=== PATIENT | female | born 1995 | race Caucasian/White ===

== ENCOUNTER 2019-06-19 18:59 | Emergency (ER) | payer MEDICAID ==
[2019-06-19] MEDS ORDERED: DIAZEPAM 2 MG TABLET PO ONE (20:48)
--- NOTE | 2019-06-19 21:00 | ER Document Report ---
ED Medical Screen (RME) - General Chief Complaint: Anxiety Stated Complaint: ANXIETY Time Seen by Provider: 06/19/19 20:42 Notes: Patient is a 23-year-old female who presents to the emergency department with a chief complaint of anxiety. She states that her symptoms started around 1730 right after work. Patient states that she has been under a great deal of stress due to her mother having stage IV lymphoma and the patient also being in a custody wisdom with her baby's father. Patient states that she has some tingling in her hands and feet. She currently takes Adderall. She does not take any medications for anxiety. Exam: Patient hyperventilating. Lung sounds clear to auscultation. Tachycardic. I have greeted and performed a rapid initial assessment of this patient. A comprehensive ED assessment and evaluation of the patient, analysis of test results and completion of medical decision making process will be conducted by an additional ED providers. TRAVEL OUTSIDE OF THE [place] IN LAST 30 DAYS: No - Related Data Allergies/Adverse Reactions: Penicillins Allergy (Verified 06/19/19 20:43) Past Medical History - Social History Chew tobacco use (# tins/day): No Renal/ Medical History: Denies: Hx Peritoneal Dialysis Past Surgical History: Reports: Hx Oral Surgery Physical Exam - Vital signs Vitals: Temp Pulse Resp BP Pulse Ox 98 F 109 H 18 134/91 H 100 06/19/19 19:10 06/19/19 19:10 06/19/19 19:10 06/19/19 19:10 06/19/19 19:10 Course - Vital Signs Vital signs: Temp Pulse Resp BP Pulse Ox 98 F 144 H 18 188/112 H 100 06/19/19 19:10 06/19/19 20:07 06/19/19 19:10 06/19/19 20:07 06/19/19 19:10
[2019-06-19 21:28] LABS: APPEARANCE,URINE CLEAR; BILIRUBIN,URINE NEGATIVE (NEGATIVE); COLOR,URINE STRAW; GLUCOSE, URINE NEGATIVE (NEGATIVE); KETONES,URINE TRACE mg/dL (NEGATIVE); LEUKOCYTE ESTERASE,URINE MODERATE (NEGATIVE); NITRITE,URINE NEGATIVE (NEGATIVE); PROTEIN,URINE NEGATIVE (NEGATIVE); URINE SPECIFIC GRAVITY 1.003; UROBILINOGEN,URINE NEGATIVE mg/dL (<2.0)
[2019-06-19 21:34] LABS: ABSOLUTE EOSINOPHILS # (AUTO) 0.1 10^3/uL (0.0-0.6); ABSOLUTE LYMPHOCYTES (AUTO) 2.1 10^3/uL (0.5-4.7); ABSOLUTE MONOCYTES (AUTO) 0.7 10^3/uL (0.1-1.4); ABSOLUTE NEUT (AUTO) 4.9 10^3/uL (1.7-8.2); BASOPHILS % (AUTO) 0.4 % (0-2); EOSINOPHILS % (AUTO) 1.5 % (0-6); HEMATOCRIT 40.9 % (36.0-47.0); HEMOGLOBIN 14.2 g/dL (12.0-15.5); LYMPHOCYTES % (AUTO) 26.8 % (13-45); MEAN CORPUSCULAR HEMOGLOBIN 33.2 pg (27.0-33.4); MEAN CORPUSCULAR HGB CONC 34.8 g/dL (32.0-36.0); MEAN CORPUSCULAR VOLUME 96 fl (80-97); MONOCYTES % (AUTO) 8.7 % (3-13); PLATELET COUNT 316 10^3/uL (150-450); RED BLOOD COUNT 4.28 10^6/uL (3.72-5.28); RED CELL DISTRIBUTION WIDTH 12.8 % (11.5-14.0); SEGMENTED NEUTROPHILS % (AUTO) 62.6 % (42-78); TOTAL CELLS COUNTED % (AUTO) 100 %; WHITE BLOOD COUNT 7.8 10^3/uL (4.0-10.5)
[2019-06-19 21:38] LABS: ALKALINE PHOSPHATASE 86 U/L (38-126); ANION GAP 14 (5-19); ASPARTATE AMINO TRANSFERASE 27 U/L (14-36); BILIRUBIN,DIRECT 0.2 mg/dL (0.0-0.4); BILIRUBIN,TOTAL 0.6 mg/dL (0.2-1.3); BLOOD UREA NITROGEN 14 mg/dL (7-20); CALCIUM 10.3 mg/dL (8.4-10.2); CARBON DIOXIDE 22 mmol/L (22-30); CHLORIDE 103 mmol/L (98-107); GLUCOSE 109 mg/dL (75-110); POTASSIUM 3.9 mmol/L (3.6-5.0)
--- NOTE | 2019-06-19 22:00 | EKG REPORT ---
SEVERITY:- OTHERWISE NORMAL ECG - SINUS TACHYCARDIA : Confirmed by: Panfilo Hilario MD 19-Jun-2019 21:59:35
--- NOTE | 2019-06-19 22:16 | ER Document Report ---
ED General - General Chief Complaint: Anxiety Stated Complaint: ANXIETY Time Seen by Provider: 06/19/19 20:42 Notes: 23-year-old female patient emergency department chief complaint of panic attack. Patient states that she is under a lot of stress. Mother is diagnosed with lymphoma. In a custody wisdom for her son. Feels extremely stressed out. Begin noticing that she was taking a large amount of deep breaths and then began to have some numbness tingling loss of sensation of her fingers and on her face. [place] really short of breath. [place] like she is going to pass out. Feels much better at this time. Was seen at triage and given a Valium and states that she feels much better. TRAVEL OUTSIDE OF THE [place] IN LAST 30 DAYS: No - HPI Onset: Just prior to arrival Onset/Duration: Gradual, Better Quality of pain: No pain Severity: Moderate Pain Level: Denies Associated symptoms: Shortness of breath, Weakness, Other - This and tingling on face and fingers - Related Data Allergies/Adverse Reactions: Penicillins Allergy (Verified 06/19/19 20:43) Past Medical History - General Information source: Patient - Social History Smoking Status: Current Every Day Smoker Chew tobacco use (# tins/day): No Frequency of alcohol use: None Drug Abuse: None Lives with: Family Family History: Reviewed & Not Pertinent Patient has suicidal ideation: No Patient has homicidal ideation: No - Past Medical History Cardiac Medical History: Reports: Hx Atrial Fibrillation Renal/ Medical History: Denies: Hx Peritoneal Dialysis Past Surgical History: Reports: Hx Oral Surgery Review of Systems - Review of Systems Notes: Constitutional: denies: Chills, Diaphoresis, Fever, Malaise, Weakness EENT: denies: Eye discharge, Blurred vision, Tearing, Double vision, Nose congestion, Nose discharge, Throat swelling, Mouth pain Cardiovascular: denies: Palpitations, Heart racing, Orthopnea, Dyspnea, Chest pain Respiratory: denies: Cough, Hurts to breathe, Wheezing, +Shortness of breath Gastrointestinal: denies: Abdominal pain, Diarrhea, Nausea, Vomiting, Black stools, bright red blood in stool Genitourinary: denies: Burning, Dysuria, Discharge, Frequency, Flank pain, Hematuria Musculoskeletal: denies: Joint pain, Joint swelling, Muscle pain, Muscle stiffness, back pain Hematologic/Lymphatic: denies: Anemia, Easy bleeding, Easy bruising, Blood clots Neurological/Psychological: denies: Confusion, Dementia, Depression, Loss of consciousness, + anxiety Skin: No lesions, no masses, no skin breakdown, no abscesses Physical Exam - Vital signs Vitals: Temp Pulse Resp BP Pulse Ox 98 F 109 H 18 134/91 H 100 06/19/19 19:10 06/19/19 19:10 06/19/19 19:10 06/19/19 19:10 06/19/19 19:10 Interpretation: Tachycardic - General General appearance: Appears well, Alert - HEENT Head: Normocephalic, Atraumatic Eyes: Normal Pupils: PERRL - Respiratory Respiratory status: No respiratory distress Chest status: Nontender Breath sounds: Normal Chest palpation: Normal - Cardiovascular Rhythm: Regular Heart sounds: Normal auscultation Murmur: No - Abdominal Inspection: Normal Distension: No distension Bowel sounds: Normal Tenderness: Nontender Organomegaly: No organomegaly - Back Back: Normal, Nontender - Extremities General upper extremity: Normal inspection, Nontender, Normal color, Normal ROM, Normal temperature General lower extremity: Normal inspection, Nontender, Normal color, Normal ROM, Normal temperature, Normal weight bearing. No: Orestes's sign - Neurological Neuro grossly intact: Yes Cognition: Normal Orientation: AAOx4 Harsh Coma Scale Eye Opening: Spontaneous Harsh Coma Scale Verbal: Oriented Harsh Coma Scale Motor: Obeys Commands [place] Coma Scale Total: 15 Speech: Normal Motor strength normal: LUE, RUE, LLE, RLE Sensory: Normal - Psychological Associated symptoms: Normal affect, Anxious - Skin Skin Temperature: Warm Skin Moisture: Dry Skin Color: Normal Course - Re-evaluation Re-evalutation: 06/19/19 22:37 Laboratory 06/19/19 06/19/19 06/19/19 21:07 21:07 21:07 WBC 7.8 RBC 4.28 Hgb 14.2 Hct 40.9 MCV 96 MCH 33.2 MCHC 34.8 RDW 12.8 Plt Count 316 Seg Neutrophils % 62.6 Lymphocytes % 26.8 Monocytes % 8.7 Eosinophils % 1.5 Basophils % 0.4 Absolute Neutrophils 4.9 Absolute Lymphocytes 2.1 Absolute Monocytes 0.7 Absolute Eosinophils 0.1 Absolute Basophils 0.0 Sodium 139.2 Potassium 3.9 Chloride 103 Carbon Dioxide 22 Anion Gap 14 BUN 14 Creatinine 0.99 Est GFR ( Amer) > 60 Est GFR (Non-Af Amer) > 60 Glucose 109 Calcium 10.3 H Total Bilirubin 0.6 Direct Bilirubin 0.2 Neonat Total Bilirubin Not Reportable Neonat Direct Bilirubin Not Reportable Neonat Indirect Bili Not Reportable AST 27 ALT 22 Alkaline Phosphatase 86 Total Protein 8.0 Albumin 5.0 Serum HCG, Qual NEGATIVE Urine Color Urine Appearance Urine pH Ur Specific [place] Urine Protein Urine Glucose (UA) Urine Ketones Urine Blood Urine Nitrite Urine Bilirubin Urine Urobilinogen Ur Leukocyte Esterase Urine WBC (Auto) Urine RBC (Auto) Squamous Epi Cells Auto Urine Mucus (Auto) Urine Ascorbic Acid 06/19/19 21:07 WBC RBC Hgb Hct MCV MCH MCHC RDW Plt Count Seg Neutrophils % Lymphocytes % Monocytes % Eosinophils % Basophils % Absolute Neutrophils Absolute Lymphocytes Absolute Monocytes Absolute Eosinophils Absolute Basophils Sodium Potassium Chloride Carbon Dioxide Anion Gap BUN Creatinine Est GFR ( Amer) Est GFR (Non-Af Amer) Glucose Calcium Total Bilirubin Direct Bilirubin Neonat Total Bilirubin Neonat Direct Bilirubin Neonat Indirect Bili AST ALT Alkaline Phosphatase Total Protein Albumin Serum HCG, Qual Urine Color STRAW Urine Appearance CLEAR Urine pH 8.0 Ur Specific [place] 1.003 Urine Protein NEGATIVE Urine Glucose (UA) NEGATIVE Urine Ketones TRACE H Urine Blood SMALL H Urine Nitrite NEGATIVE Urine Bilirubin NEGATIVE Urine Urobilinogen NEGATIVE Ur Leukocyte Esterase MODERATE H Urine WBC (Auto) 6 Urine RBC (Auto) 0 Squamous Epi Cells Auto 1 Urine Mucus (Auto) RARE Urine Ascorbic Acid NEGATIVE 06/19/19 22:38 Is a well-appearing 23-year-old female patient who describes a panic attack with hyperventilation. Patient is under a lot of stress. At this time she states that the Valium that she was given at triage makes her symptoms better. I do not think that this represents a PE. She has no asymmetrical leg edema. No prior history of blood clot. No family history of blood clots. Her heart rate is currently under 100. Her oxygen saturations are 100%. She has no chest pain or hemoptysis. - Vital Signs Vital signs: Temp Pulse Resp BP Pulse Ox 98.6 F 100 20 126/83 H 99 06/19/19 21:55 06/19/19 21:55 06/19/19 21:55 06/19/19 21:55 06/19/19 21:55 - Laboratory Result Diagrams: 06/19/19 21:07 06/19/19 21:07 Laboratory results interpreted by me: 06/19/19 06/19/19 21:07 21:07 Calcium 10.3 H Urine Ketones TRACE H Urine Blood SMALL H Ur Leukocyte Esterase MODERATE H - EKG Interpretation by Me EKG shows normal: [place], Intervals, QRS Complexes, ST-T Waves Rate: Tachycardia Discharge - Discharge Clinical Impression: Sinus tachycardia, Panic attack, Hyperventilation syndrome Condition: Good Disposition: HOME, SELF-CARE Instructions: Anxiety ([facility]), Sinus Tachycardia ([facility]) Additional Instructions: Please follow-up with your primary care doctor. You may benefit from seeing a counselor or even a psychiatrist. I have prescribed a small course of some anxiety medications. Please note, as mentioned some these medications can be highly addictive and can lead to dependence. Use them sparingly. Do not mix with alcohol. Do not drive while taking these medications. Prescriptions: Clonazepam 0.5 mg PO QHS PRN 20 Days #20 tablet PRN Reason: Anxiety/Agitation Referrals: [facility] [Provider Group] - Follow up in 1 week
[2019-06-19 22:59] VITALS: BP 125/75
== END 2019-06-19 22:56 | disposition home or self-care (01) ==
LOC: ER 18:59
DX: F41.0 Panic disorder [episodic paroxysmal anxiety] (principal); F45.8 Other somatoform disorders; R00.0 Tachycardia, unspecified; R53.1 Weakness; F17.200 Nicotine dependence, unspecified, uncomplicated; Z63.79 Other stressful life events affecting family and household; Z79.899 Other long term (current) drug therapy; Z88.0 Allergy status to penicillin
CPT/HCPCS: 93005; 36415; 84703; 85025; 80053; 81001; 93010; J3490; 99283

== ENCOUNTER 2019-07-27 20:57 | Emergency (ER) | payer OTHER ==
[2019-07-27 21:07] VITALS: BP 175/99
== END 2019-07-27 23:00 | disposition left against medical advice (07) ==
LOC: ER 20:57
DX: Z53.21 Procedure and treatment not carried out due to patient leaving prior to being seen by health care provider (principal); E16.2 Hypoglycemia, unspecified

== ENCOUNTER 2019-08-16 02:54 | Emergency (ER) | payer MEDICAID ==
[2019-08-16 02:59] VITALS: BP 138/96
--- NOTE | 2019-08-16 06:39 | RADIOLOGY REPORT (SQ) ---
Chest 2 view on 08/16/2019 at 5:19 AM CLINICAL INDICATION: Shortness of breath COMPARISON: 07/19/2019 FINDINGS: The lungs are clear. Cardiac, hilar and mediastinal contours are within normal limits. Pulmonary vascularity is within normal limits. No bony abnormality is noted. IMPRESSION: No active disease.
--- NOTE | 2019-08-16 07:45 | EKG REPORT ---
SEVERITY:- OTHERWISE NORMAL ECG - SINUS TACHYCARDIA : Confirmed by: Panfilo Hilario MD 16-Aug-2019 07:45:12
== END 2019-08-16 08:02 | disposition left against medical advice (07) ==
LOC: ER 02:54
DX: Z53.21 Procedure and treatment not carried out due to patient leaving prior to being seen by health care provider (principal)
CPT/HCPCS: 71046; 93005; 93010

== ENCOUNTER 2020-11-07 19:19 | Emergency (ER) | payer MEDICAID ==
[2020-11-07 19:28] VITALS: BP 147/107
[2020-11-07] MEDS ORDERED: LORAZEPAM 1 MG TABLET PO ONE (20:18)
--- NOTE | 2020-11-07 20:26 | ER Document Report ---
ED Psych Disorder / Suicide - General Chief Complaint: Anxiety Stated Complaint: PANIC ATTACK,SHAKING Time Seen by Provider: 11/07/20 20:04 Primary Care Provider: FORTINO RUIZ FNP-C [COMMUNITY BASED STAFF] - Follow up as needed Mode of Arrival: Ambulatory Information source: Patient Notes: Patient is a 25-year-old female comes emergency room complaining of an anxiety attack. Patient states she had no specific trigger that she knows of except that her mother approximately a year ago and she still dealing with that. Patient was prescribed by the same provider for a number of years Ativan 0.5 mg twice a day and she stopped getting them filled in February 222019 was her last day to fill them. She still is getting her Adderall for ADHD states that she really does not want to take that anymore because it does not do anything for her. Patient is very teary and emotional at this point however she denies suicidal ideation or homicidal ideation. Her father brought her here. She will be going back with him. Patient denies any other medical problems and only has a history of smoking cigarettes. TRAVEL OUTSIDE OF THE [place] IN LAST 30 DAYS: No - HPI Patient complains to provider of: Agitated. No: Homicidal plan, Homicidal attempt, Suicidal ideation, Suicidal plan Onset: Yesterday Onset was: Sudden Suicide Risk Factors: Depressed, Panic disorder Normal mood: Yes Associated symptoms: Other - Anxious panicky tearful - Related Data Allergies/Adverse Reactions: Penicillins Allergy (Verified 11/07/20 20:01) Past Medical History - General Information source: Patient - Social History Smoking Status: Current Some Day Smoker Cigarette use (# per day): Yes - 2 cigarettes a day Chew tobacco use (# tins/day): No Smoking Education Provided: Yes Frequency of alcohol use: None Drug Abuse: None Lives with: Family Family History: None, Reviewed & Not Pertinent Patient has suicidal ideation: No Patient has homicidal ideation: No - Past Medical History Cardiac Medical History: Reports: Hx Atrial Fibrillation Renal/ Medical History: Denies: Hx Peritoneal Dialysis Past Surgical History: Reports: Hx Oral Surgery Review of Systems - Review of Systems Constitutional: No symptoms reported EENT: No symptoms reported Cardiovascular: No symptoms reported Respiratory: No symptoms reported Gastrointestinal: No symptoms reported Genitourinary: No symptoms reported Female Genitourinary: No symptoms reported Musculoskeletal: No symptoms reported Skin: No symptoms reported Hematologic/Lymphatic: No symptoms reported Neurological/Psychological: See HPI, Anxiety -: Yes All other systems reviewed and negative Physical Exam - Vital signs Vitals: Temp Pulse Resp BP Pulse Ox 97.7 F 137 H 20 147/107 H 100 11/07/20 19:25 11/07/20 19:25 11/07/20 19:25 11/07/20 19:25 11/07/20 19:25 Interpretation: Hypertensive, Tachycardic - Notes Notes: PHYSICAL EXAMINATION: GENERAL: Patient is a well-nourished well-developed 25-year-old female no apparent distress on examination although she does appear somewhat mildly anxious and teary at this time.. HEAD: Atraumatic, normocephalic. EYES: Pupils equal round and reactive to light, extraocular movements intact, conjunctiva are normal. ENT: Nares patent, oropharynx clear without exudates. Moist mucous membranes. NECK: Normal range of motion, supple without lymphadenopathy LUNGS: Breath sounds clear to auscultation bilaterally and equal. No wheezes rales or rhonchi. HEART: Tachycardic rate and rhythm without murmurs ABDOMEN: Soft, nontender, nondistended abdomen. No guarding, no rebound. No masses appreciated. Female : deferred Musculoskeletal: Normal range of motion, no pitting or edema. No cyanosis. NEUROLOGICAL: Normal speech, normal gait. Normal sensory, motor exams PSYCH: Anxious, panicky, tearful SKIN: Warm, Dry, normal turgor, no rashes or lesions noted. Course - Re-evaluation Re-evalutation: 11/07/20 20:25 Given father's with patient believe her story that she is just having a setback and she is going home in his care so at this point I will write her for 10 0.5tablets this will give her a few days so she can get back in touch with her provider. I did look patient up on the [facility] aware for [place] and she does not have any type of drug-seeking behavior she gets all of her Adderall from the same person as she did with the Ativan from that same person which was stopped on February 23, 2020 was the last draw. - Vital Signs Vital signs: Temp Pulse Resp BP Pulse Ox 97.7 F 121 H 22 H 147/107 H 100 11/07/20 19:25 11/07/20 20:12 11/07/20 20:12 11/07/20 19:25 11/07/20 20:12 - Laboratory Results Critical Laboratory Results Reviewed: No Critical Results - Radiology Results Critical Radiology Results Reviewed: No Critical Results Discharge - Discharge Clinical Impression: Anxiety Condition: Stable Disposition: HOME, SELF-CARE Instructions: Anxiety ([facility]) Additional Instructions: Home and rest. Highly recommend still staying with your dad until least a couple days to work things out. As we discussed contact your provider or your therapist for recontact and reevaluation for medications. This will be the only time we can write for any type of medication like this out of ER. If for any reason you have any setbacks or have any considerations of suicidal or homicidal thoughts return to ER for reevaluation please Prescriptions: Lorazepam [Ativan 0.5 mg Tablet] 0.5 mg PO BID PRN #10 tab PRN Reason: Forms: Smoking Cessation Education, Elevated Blood Pressure Referrals: FORTINO RUIZ, [employer] [COMMUNITY BASED STAFF] - Follow up as needed
== END 2020-11-07 20:33 | disposition home or self-care (01) ==
LOC: ER 19:19
DX: F41.0 Panic disorder [episodic paroxysmal anxiety] (principal); F17.210 Nicotine dependence, cigarettes, uncomplicated; I48.91 Unspecified atrial fibrillation; Z88.0 Allergy status to penicillin
CPT/HCPCS: 96374; 99283